=== PATIENT | female | born 1970 | race Caucasian/White ===

== ENCOUNTER 2016-12-13 13:53 | Emergency (ER) | payer BC, OTHER ==
[2016-12-13 13:59] VITALS: TEMP 97.5
[2016-12-13] MEDS ORDERED: SODIUM CHLORIDE 1,000 ML IV ONE (15:30)
[2016-12-13] MEDS ORDERED: ONDANSETRON 4 MG/2 ML VIAL IVPB ONE (15:30)
--- NOTE | 2016-12-13 15:51 | PDOC ---
History of Present Illness - General History Source: Patient Exam Limitations: No Limitations - History of Present Illness Initial Comments: 12/13/16 17:05 The patient is a 44 year old female with a past medical history of chronic neck pain, vertigo, TMJ , GERD, who presents to the emergency department with complaints of dizziness, palpitations and SOB for a week. She notes that her palpitations are worse during the night. Patient notes that she is experiencing tingling of the hands, feet and lips as well.. Patient notes that she is under a lot of stress who saw her psychiatrist on Saturday that noted that the following symptoms are related to her situation. She also reports nausea. Patient states these symptoms have all been present on and off for several months, she states she has been under alot of stress, and these symptoms seem worse at night and improved during the day. She denies any fever, chills, blurry vision, changes in vision, change in sensation, vomiting, diarrhea, melena, BPR, constipation or headache. <Terri Chambers - Last Filed: 12/13/16 17:05> <Cesar Petersen - Last Filed: 12/14/16 11:22> - General Chief Complaint: Lightheaded Stated Complaint: Lightheaded, palpitations Time Seen by Provider: 12/13/16 14:47 Past History <Terri Chambers - Last Filed: 12/13/16 17:05> - Past Medical History Anemia: No Asthma: No Cancer: No Cardiac Disorders: No CVA: No COPD: No CHF: No Dementia: No Diabetes: No GI Disorders: Yes (CHRONIC NAUSEA COLONIC POLYPS) Disorders: No HTN: No Hypercholesterolemia: No Liver Disease: No Psychiatric Problems: Yes (depression) Suicide Attempt (Hx): No Seizures: No Thyroid Disease: No - Surgical History Abdominal Surgery: No Appendectomy: No Cardiac Surgery: No Cholecystectomy: No Lung Surgery: No Neurologic Surgery: No Orthopedic Surgery: No - Psycho/Social/Smoking Cessation Hx Anxiety: No Suicidal Ideation: No Smoking History: Never smoked Have you smoked in the past 12 months: No Information on smoking cessation initiated: No Hx Alcohol Use: No Drug/Substance Use Hx: No Substance Use Type: None Hx Substance Use Treatment: No <Cesar Petersen - Last Filed: 12/14/16 11:22> - Past Medical History Allergies/Adverse Reactions: Allergies Allergy/AdvReac Type Severity Reaction Status Date / Time No Known Allergies Allergy Verified 12/13/16 13:59 Home Medications: Ambulatory Orders Citalopram Hydrobromide [Celexa -] 40 mg PO DAILY 10/13/15 Zolpidem Tartrate [Ambien] 10 mg PO HS PRN 10/17/15 Review of Systems - Review of Systems Able to Perform ROS?: Yes Comments:: 12/13/16 17:06 CONSTITUTIONAL: No reported: Fever, Chills, Diaphoresis, Generalized Weakness, Malaise, Loss of Appetite HEENT: No reported: Rhinorrhea, Nasal Congestion, Throat Pain, Throat Swelling, Difficulty Swallowing, Mouth Swelling, Ear Pain, Eye Pain, Visual Changes CARDIOVASCULAR: Reported: palpitations No reported: Chest Pain, Syncope, Irregular Heart Rate, Lightheadedness, Peripheral Edema RESPIRATORY: No reported: Cough, Shortness of Breath, SOB with Exertion, Orthopnea, Wheezing , Stridor, Hemoptysis GASTROINTESTINAL: Reported: nausea No reported: Abdominal pain, Abdominal Distension, Vomiting, Diarrhea, Constipation, Melena, Hematochezia GENITOURINARY: No reported: Dysuria, Frequency, Urgency, Hesitancy, Flank Pain, Genital Pain MUSCULOSKELETAL: No reported: Myalgia, Arthralgia, Joint Swelling, Back pain, Neck Pain SKIN: No reported: Rash, Itching, Pallor HEMEATOLOGIC/IMMUNOLOGIC: No reported: Easy Bleeding, Easy Bruising, Lymphadenopathy, Frequent infections ENDOCRINE: No reported: Unexplained Weight Gain, Unexplained Weight Loss, Heat Intolerance , Cold Intolerance NEUROLOGIC: Reported: dizziness, numbness of lip, hands and feet No reported: Headache, Focal Weakness, Paresthesias, Vertigo, Lightheadedness, Unsteady Gait, Seizure, Mental Status Changes, Incontinence PSYCHIATRIC: No reported: Anxiety, Depression <Terri Chambers - Last Filed: 12/13/16 17:05> *Physical Exam - Vital Signs Last Vital Signs Temp Pulse Resp BP Pulse Ox 97.5 F L 79 18 103/73 100 12/13/16 13:57 12/13/16 13:57 12/13/16 13:57 12/13/16 13:57 12/13/16 13:57 - Physical Exam Comments: 12/13/16 17:06 GENERAL: The patient is awake, alert, and fully oriented, Nontoxic - in no acute distress. HEAD: Normocephalic, atraumatic. EYES: extraocular movements intact, sclera anicteric, conjunctiva clear. ENT: Normal voice, Moist mucous membranes. NECK: Normal range of motion, supple LUNGS: Breath sounds equal, clear to auscultation bilaterally. No wheezes, no rhonchi, no rales. HEART: Regular rate and rhythm, without murmur, rub or gallop. ABDOMEN: Soft, nontender, normoactive bowel sounds. No guarding, no rebound.No CVA tenderness EXTREMITIES: Normal range of motion, no edema. No clubbing or cyanosis. No cords, erythema, or tenderness. NEUROLOGICAL: No facial assymetry, Normal speech, PSYCH: Normal mood, normal affect. SKIN: Warm, Dry, normal turgor <Terri Chambers - Last Filed: 12/13/16 17:05> - Vital Signs Last Vital Signs Temp Pulse Resp BP Pulse Ox 97.5 F L 79 18 103/73 100 12/13/16 13:57 12/13/16 13:57 12/13/16 13:57 12/13/16 13:57 12/13/16 13:57 <Cesar Petersen - Last Filed: 12/14/16 11:22> Heart Score/ECG Review - ECG Impressions Comment:: 12/13/16 17:21 Twelve-lead EKG was performed and reviewed by me. There is normal sinus rhythm with a normal rate. Rate of 67 The axis is normal. The intervals are normal. There is normal R wave progression There are no ST or T wave abnormalities. <Cesar Petersen - Last Filed: 12/14/16 11:22> ED Treatment Course - LABORATORY CBC & Chemistry Diagram: 12/13/16 15:30 12/13/16 15:30 - ADDITIONAL ORDERS Additional order review: Laboratory Results 12/13/16 16:04 Urine Color Straw Urine Appearance Clear Urine pH 7.0 Ur Specific [place] 1.013 Urine Protein Negative Urine Glucose (UA) Negative Urine Ketones Negative Urine Blood Negative Urine Nitrite Negative Urine Bilirubin Negative Urine Urobilinogen Negative Ur Leukocyte Esterase Negative - Medications Given in the ED: ED Medications Discontinued Medications Generic Name Dose Route Start Last Admin Trade Name Freq PRN Reason Stop Dose Admin Alprazolam 0.25 mg 12/13/16 16:22 12/13/16 16:26 Xanax - PO 12/13/16 16:23 0.25 mg ONCE ONE Administration Sodium Chloride 1,000 mls @ 1,000 mls/hr 12/13/16 15:30 12/13/16 16:18 Normal Saline - IV 12/13/16 16:29 1,000 mls/hr .Q1H ONE Administration Ondansetron HCl 4 mg 12/13/16 15:30 12/13/16 16:26 Zofran Injection IVPB 12/13/16 15:31 4 mg ONCE ONE Administration <Terri Chambers - Last Filed: 12/13/16 17:05> - LABORATORY CBC & Chemistry Diagram: 12/13/16 15:30 12/13/16 17:33 <Cesar Petersen - Last Filed: 12/14/16 11:22> Medical Decision Making - Medical Decision Making 12/13/16 17:19 46y F presenting with intermittent sob, finger tip/.perioral tingling/numbness, palpitations, nausea, worse in the eveinng, for the past several months, + stressors emotionally and at home. No associated cp, abd pain headache, back pain, neck pain. exam unremarkable suspect anxiety vitals normal here will ck labs to r/o anemia, metabolic derangement ekg to screen for arrhythmia pt given fluids, zofran and xanax for sypmtomatic relief pt wit hPMD and psych as outpatient. pt signed out to dr. hamm to fu with lab results and disposition the patient <Cesar Petersen - Last Filed: 12/14/16 11:22> *DC/Admit/Observation/Transfer - Attestations Scribe Attestion: 12/13/16 17:05 Documentation prepared by TEJAS Millard, acting as medical physiologist for Cesar Petersen MD, /DO. <Terri Chambers - Last Filed: 12/13/16 17:05> <Cesar Petersen - Last Filed: 12/14/16 11:22> Diagnosis at time of Disposition: Lightheaded - Discharge Dispostion Disposition: HOME Condition at time of disposition: Stable - Referrals Referrals: Ban Vivas [Primary Care Provider] - Yuri Gama MD [Staff Physician] - - Patient Instructions Printed Discharge Instructions: DI for Dehydration -- Adult Additional Instructions: Please make an appointment with a assembler 1st shift. You may likely need a holter monitor. Drink plenty of fluids and rest. Call to schedule an appointment with a assembler 1st shift. Call back later gerald at [phone] for the thyroid results.
[2016-12-13] MEDS ORDERED: ALPRAZolam 0.25 MG TABLET PO ONE (16:22)
[2016-12-13] MEDS ORDERED: ONDANSETRON 4 MG/2 ML VIAL ONE (16:23)
[2016-12-13] MEDS ORDERED: ALPRAZolam 0.25 MG TABLET ONE (16:24)
[2016-12-13 16:33] LABS: URINE APPEARANCE CLEAR; URINE BILIRUBIN NEGATIVE (NEGATIVE); URINE BLOOD NEGATIVE (NEGATIVE); URINE COLOR STRAW; URINE GLUCOSE (UA) NEGATIVE (NEGATIVE); URINE KETONE NEGATIVE (NEGATIVE); URINE LEUK ESTERASE NEGATIVE (NEGATIVE); URINE NITRITE NEGATIVE (NEGATIVE); URINE PROTEIN NEGATIVE (NEGATIVE); URINE UROBILINOGEN NEGATIVE E.U./dl (0.2-1.0)
[2016-12-13 16:53] LABS: BASOPHIL 1.2 % (0-2.0); EOSINOPHIL 3.2 % (0-4.5); MCH 29.2 pg (25.7-33.7); MCHC 33.5 g/dl (32.0-36.0); MEAN CELL VOLUME 87.2 fl (80-96); MEAN PLT VOLUME 10.7 fl (7.5-11.1); NEUTROPHILS 58.1 % (42.8-82.8); PLATELET COUNT 155 K/MM3 (134-434); RDW 13.1 % (11.6-15.6); WHITE BLOOD COUNT 5.6 K/mm3 (4.0-10.0)
[2016-12-13 18:34] LABS: ALBUMIN 3.9 g/dl (3.4-5.0); ANION GAP 8 (8-16); CALCIUM 8.2 mg/dL (8.5-10.1); CO2 29 mmol/L (21-32); CREATININE 0.5 mg/dL (0.55-1.02); GLUCOSE,RANDOM 75 mg/dL (74-106); MAGNESIUM 2.1 mg/dL (1.8-2.4); SGPT/ALT 22 U/L (12-78)
[2016-12-13 18:38] LABS: ALK PHOS 58 U/L (45-117); BILIRUBIN,TOTAL 0.5 mg/dL (0.2-1.0); SGOT/AST 13 U/L (15-37); TOT PROT 6.7 g/dl (6.4-8.2)
[2016-12-13 19:25] VITALS: BP 103/67; PULSE 76
--- NOTE | 2016-12-13 19:28 | PDOC ---
*Physical Exam - Vital Signs Last Vital Signs Temp Pulse Resp BP Pulse Ox 97.5 F L 76 17 103/67 99 12/13/16 13:57 12/13/16 19:24 12/13/16 19:24 12/13/16 19:24 12/13/16 19:24 ED Treatment Course - LABORATORY CBC & Chemistry Diagram: 12/13/16 15:30 12/13/16 17:33 - ADDITIONAL ORDERS Additional order review: Laboratory Results 12/13/16 12/13/16 12/13/16 17:33 16:04 15:30 Sodium 144 Cancelled Potassium 4.2 Cancelled Chloride 107 Cancelled Carbon Dioxide 29 Cancelled Anion Gap 8 Cancelled BUN 12 Cancelled Creatinine 0.5 L Cancelled Creat Clearance w eGFR > 60 Cancelled Random Glucose 75 Cancelled Calcium 8.2 L Cancelled Magnesium 2.1 Total Bilirubin 0.5 D Cancelled AST 13 L D Cancelled ALT 22 D Cancelled Alkaline Phosphatase 58 Cancelled Total Protein 6.7 Cancelled Albumin 3.9 Cancelled TSH Cancelled Serum , Qual Negative Urine Color Straw Urine Appearance Clear Urine pH 7.0 Ur Specific [place] 1.013 Urine Protein Negative Urine Glucose (UA) Negative Urine Ketones Negative Urine Blood Negative Urine Nitrite Negative Urine Bilirubin Negative Urine Urobilinogen Negative Ur Leukocyte Esterase Negative 12/13/16 15:30 RBC 4.48 MCV 87.2 MCHC 33.5 RDW 13.1 MPV 10.7 Neutrophils % 58.1 Lymphocytes % 33.2 D Monocytes % 4.3 Eosinophils % 3.2 D Basophils % 1.2 - Medications Given in the ED: ED Medications Discontinued Medications Generic Name Dose Route Start Last Admin Trade Name Jhon PRN Reason Stop Dose Admin Alprazolam 0.25 mg 12/13/16 16:22 12/13/16 16:26 Xanax - PO 12/13/16 16:23 0.25 mg ONCE ONE Administration Sodium Chloride 1,000 mls @ 1,000 mls/hr 12/13/16 15:30 12/13/16 16:18 Normal Saline - IV 12/13/16 16:29 1,000 mls/hr .Q1H ONE Administration Ondansetron HCl 4 mg 12/13/16 15:30 12/13/16 16:26 Zofran Injection IVPB 12/13/16 15:31 4 mg ONCE ONE Administration Medical Decision Making - Medical Decision Making 12/13/16 19:26 Sign-out received from outgoing Emergency Physician Dr. Petersen Pt interviewed and examined Ancillary studies reviewed Case discussed in detail with oncoming Emergency Physician including history, physical exam and ancillary studies. CBC, BMP 12/13/16 15:30 12/13/16 17:33 CMP Sodium 144 mmol/L (136-145) 12/13/16 17:33 Potassium 4.2 mmol/L (3.5-5.1) 12/13/16 17:33 Chloride 107 mmol/L (98-107) 12/13/16 17:33 Carbon Dioxide 29 mmol/L (21-32) 12/13/16 17:33 Anion Gap 8 (8-16) 12/13/16 17:33 BUN 12 mg/dL (7-18) 12/13/16 17:33 Creatinine 0.5 mg/dL (0.55-1.02) L 12/13/16 17:33 Creat Clearance w eGFR > 60 (>60) 12/13/16 17:33 Random Glucose 75 mg/dL (74-106) 12/13/16 17:33 Calcium 8.2 mg/dL (8.5-10.1) L 12/13/16 17:33 Magnesium 2.1 mg/dL (1.8-2.4) 12/13/16 17:33 Total Bilirubin 0.5 mg/dL (0.2-1.0) D 12/13/16 17:33 AST 13 U/L (15-37) L D 12/13/16 17:33 ALT 22 U/L (12-78) D 12/13/16 17:33 Alkaline Phosphatase 58 U/L (45-117) 12/13/16 17:33 Total Protein 6.7 g/dl (6.4-8.2) 12/13/16 17:33 Albumin 3.9 g/dl (3.4-5.0) 12/13/16 17:33 TSH Cancelled 12/13/16 15:30 Serum , Qual Negative 12/13/16 16:04 TSH pending. After discussing the patient, and the patient's family, the patient appears to be under a significant amount of stress at home and work. It is possible that this is all stress related. however, given the length of the symptoms, I will refer the patient to cardiology for possible tilt test and holter monitor. The patient is requesting to go home, prior to the TSH results. I have the patient promise to call me back for the results of the TSH. She is ambulatory without difficulty. I discussed the physical exam findings, ancillary test results and final diagnoses with the patient. I answered all of the patient's questions. The patient was satisfied with the care received and felt comfortable with the discharge plan and treatment plan. The patient will call their primary care physician within 24 hours to arrange follow-up and will return to the Emergency Department with any new, persistant or worsening symptoms. *DC/Admit/Observation/Transfer Diagnosis at time of Disposition: Lightheaded - Discharge Dispostion Disposition: HOME Condition at time of disposition: Stable Admit: No - Referrals Referrals: Ban Vivas [Primary Care Provider] - Yuri Gama MD [Staff Physician] - - Patient Instructions Printed Discharge Instructions: DI for Dehydration -- Adult Additional Instructions: Please make an appointment with a ip litigation paralegal. You may likely need a holter monitor. Drink plenty of fluids and rest. Call to schedule an appointment with a ip litigation paralegal. Call back later tonight at [phone] for the thyroid results. - Post Discharge Activity
--- NOTE | 2016-12-14 11:49 | EKG ---
Test Reason : Blood Pressure : / mmHG Vent. Rate : 067 BPM Atrial Rate : 067 BPM P-R Int : 162 ms QRS Dur : 088 ms QT Int : 440 ms P-R-T Axes : 076 079 048 degrees QTc Int : 464 ms NORMAL SINUS RHYTHM POSSIBLE LEFT ATRIAL ENLARGEMENT INCOMPLETE RBBB WHEN COMPARED WITH ECG OF 11-APR-2014 12:03, NO SIGNIFICANT CHANGE WAS FOUND Confirmed by CHUY VENTURA MD ([id number]) on 12/14/2016 11:48:59 AM Referred By: Confirmed By:CHUY VENTURA MD
== END 2016-12-13 19:53 | disposition home or self-care (01) ==
LOC: JER 13:53
PROC: 3E0337Z Introduction of Electrolytic and Water Balance Substance into Peripheral Vein, Percutaneous Approach (ICD-10-PCS; principal; 2016-12-13)
DX: R42 Dizziness and giddiness (principal); F32.9 Major depressive disorder, single episode, unspecified
CPT/HCPCS: 36415; 80053; 81003; 83735; 84443; 84703; 85025; 93005; 93010; 99282-25

== ENCOUNTER 2018-07-06 01:02 | Observation (INO) | payer OTHER ==
[2018-07-06] MEDS ORDERED: NALOXONE HCL 0.4 MG/ML VIAL IVPUSH ONE (01:28)
[2018-07-06] MEDS ORDERED: NALOXONE HCL 0.4 MG/ML VIAL ONE (01:30)
--- NOTE | 2018-07-06 01:34 | PDOC ---
History of Present Illness - General Chief Complaint: Overdose Stated Complaint: OVERDOSE Time Seen by Provider: 07/06/18 01:25 - History of Present Illness Initial Comments: 07/06/18 01:29 44 year old female with a past medical history of chronic neck pain, vertigo, TMJ , GERD, who presents to the emergency department with overdose on Ambien, Vallium, possible Robaxin, Celexa with alcohol use earlier in the evening. The patient was found by her in the home lethargic, unresponsive, and with difficulty breathing. She told her that she was trying to commit suicide and she wants to . She has tried to commit suicide before previously with slitting her wrists. Past History - Past Medical History Allergies/Adverse Reactions: Allergies Allergy/AdvReac Type Severity Reaction Status Date / Time No Known Allergies Allergy Verified 07/06/18 01:21 Home Medications: Ambulatory Orders Diazepam [Valium] 2 mg PO DAILY 07/18/17 Alprazolam [Xanax] 0.25 mg PO DAILY PRN #7 tablet MDD 1 03/25/18 Zolpidem Tartrate [Ambien] 5 mg PO HS 03/25/18 Anemia: No Asthma: No Cancer: No Cardiac Disorders: No CVA: No COPD: No CHF: No Dementia: No Diabetes: No GI Disorders: Yes (CHRONIC NAUSEA COLONIC POLYPS) Disorders: No HTN: No Hypercholesterolemia: No Liver Disease: No Psychiatric Problems: Yes (depression) Seizures: No Thyroid Disease: No - Surgical History Abdominal Surgery: No Appendectomy: No Cardiac Surgery: No Cholecystectomy: No Lung Surgery: No Neurologic Surgery: No Orthopedic Surgery: No - Suicide/Smoking/Psychosocial Hx Smoking History: Unknown if ever smoked Have you smoked in the past 12 months: No Information on smoking cessation initiated: No Hx Alcohol Use: No Drug/Substance Use Hx: No Substance Use Type: None Hx Substance Use Treatment: No *Physical Exam - Vital Signs Last Vital Signs Temp Pulse Resp BP Pulse Ox 97.6 F 64 12 96/66 98 07/06/18 01:05 07/06/18 01:05 07/06/18 01:05 07/06/18 01:05 07/06/18 01:05 - Physical Exam Comments: 07/06/18 02:55 AOx3, but lethargic requiring 8L on nonrebreather CTAB, RRR no abdominal tenderness ED Treatment Course - LABORATORY CBC & Chemistry Diagram: 07/06/18 01:23 07/06/18 01:23 - RADIOLOGY Radiology Studies Ordered: Category Date Time Status ABDOMEN FLAT-LATERAL [RAD] Stat Radiology 07/06/18 01:15 Ordered CHEST X-RAY PORTABLE* [RAD] Stat Radiology 07/06/18 01:15 Ordered Medical Decision Making - Medical Decision Making 07/06/18 01:41 44 year old female with a past medical history of chronic neck pain, vertigo, TMJ , GERD, who presents to the emergency department with overdose on Ambien, Vallium, possible Robaxin, Celexa with alcohol use earlier in the evening. The patient was found by her in the home lethargic, unresponsive, and with difficulty breathing. She told her that she was trying to commit suicide and she wants to . ED Course: Patient able to verbally communicate, but lethargic. Narcan administered. Fluid resuscitation given. Pt endorses feeling unwell, because she is still alive. 07/06/18 02:56 Patient reassessed. stable. satting 97% on RA. [facility]. Waiting call back. 07/06/18 03:55 U tox: + benzos 07/06/18 03:56 Patient admitted to medicine. *DC/Admit/Observation/Transfer Diagnosis at time of Disposition: Overdose - Discharge Dispostion Condition at time of disposition: Stable Decision to Admit order: Yes - Referrals - Patient Instructions - Post Discharge Activity
--- NOTE | 2018-07-06 01:36 | PDOC ---
Attending Attestation - Resident Resident Name: Jocelyn Cuevas - ED Attending Attestation I have performed the following: I have examined & evaluated the patient, The case was reviewed & discussed with the resident, I agree w/resident's findings & plan - HPI HPI: 07/06/18 01:37 Pt had argument with her of 4 yrs, and she took valiums and narcotics that were at home and she wanted to end her life. Pt states that she cannot take it any more, and she wants it to end. - Physicial Exam PE: 07/06/18 01:38 Agree with resident. Pt is sleepy but arousable. She is able to give a hx and follow commands. She tells me that her son from a prior relationship is 27, that she is for 4 yrs. That she argues with all the time; that she cut her right wrist 6 yrs ago, and that she has throught about ending her life in the past. Pupils are not blown. HR is 61; RR is 9-15. Pt has BP of 106 systolic. Pt is afebrile. She is postmenopausal and she will have portable CXR and Abd XR. EKG is NSR. - Medical Decision Making 07/06/18 01:42 [place] poison control center called; I spoke to Alex, who tells me that Narcan should be given for potential narcotic ingestion. Pt should not be dangerously lethargic from valium; fomepizole is not recommended, as she may have a seizure. Pt ought to be hydrated. Tox studies will be sent. 07/06/18 01:57 Pt will be admitted for overdose and for psych evaluation in the AM 07/06/18 03:17 Pt has benzos in the urine 07/06/18 03:56 Salicylates and tylenol negative. ETOH 71; only benzos in the urine (valium) states that pt may have ingested his bottle full of 500mg robaxin, celexa, ambiens, 's # is [phone] 07/06/18 03:58 I tried admitting the patient to the ICU, as she is somnolent, though he vitals are stable. ICU rejected the paitent. Pt now will be admitted to telemetry admission. Hospitalist aware. Heart Score/ECG Review - Age Age: 45-65 - ECG Intrepretation Rhythm: Regular Rhythm - [place]: Normal - P and MT Delta Wave(s) Present: No WPW: No - QRS Poor R Wave Progression: No Q Wave Present: No - ST and T Early Repolarization: No Non Specific ST-T Wave changes: No Flattened T Waves: No Prolonged Q-T Interval: No - ECG Impressions Normal ECG: Yes Non-specific ST Elevation: No Ischemic Changes: No
[2018-07-06 01:37] LABS: BASO % 0.3 % (0-2.0); EOS % 6.1 % (0-4.5); HEMATOCRIT 37.6 % (32.4-45.2); HEMOGLOBIN 12.7 GM/dL (10.7-15.3); LYMPH % 47.8 % (8-40); MCH 29.5 pg (25.7-33.7); MCHC 33.8 g/dl (32.0-36.0); MEAN CELL VOLUME 87.5 fl (80-96); MEAN PLT VOLUME 10.3 fl (7.5-11.1); MONO % 4.9 % (3.8-10.2); NEUT % 40.9 % (42.8-82.8); PLATELET COUNT 150 K/MM3 (134-434); RDW 12.5 % (11.6-15.6); WHITE BLOOD COUNT 5.4 K/mm3 (4.0-10.0)
[2018-07-06] MEDS ORDERED: SODIUM CHLORIDE 1,000 ML IV SCH ×2 (01:45→07:00)
[2018-07-06 01:52] LABS: INR 1.07 (0.83-1.09); PROTHROMBIN TIME (PATIENT) 12.6 SEC (9.7-13.0)
[2018-07-06] MEDS ORDERED: SODIUM CHLORIDE 1,000 ML IV ONE (01:59)
[2018-07-06 02:02] LABS: ALBUMIN 3.8 g/dl (3.4-5.0); ALK PHOS 70 U/L (45-117); ANION GAP 7 MMOL/L (8-16); BILIRUBIN,TOTAL 0.3 mg/dL (0.2-1); BLOOD UREA NITROGEN 14 mg/dL (7-18); CALCIUM 8.7 mg/dL (8.5-10.1); CHLORIDE 106 mmol/L (98-107); CO2 31 mmol/L (21-32); CREATININE 0.8 mg/dL (0.55-1.3); GLUCOSE,RANDOM 79 mg/dL (74-106); POTASSIUM 3.7 mmol/L (3.5-5.1); SGOT/AST 25 U/L (15-37); SGPT/ALT 25 U/L (13-61); SODIUM 143 mmol/L (136-145)
[2018-07-06 02:52] LABS: URINE APPEARANCE CLEAR; URINE BILIRUBIN NEGATIVE (<2.0 mg/dL); URINE COLOR LTYELLOW; URINE GLUCOSE (UA) NEGATIVE (NEGATIVE); URINE KETONE NEGATIVE (NEGATIVE); URINE LEUK ESTERASE 2+ (NEGATIVE); URINE NITRITE NEGATIVE (NEGATIVE); URINE PROTEIN NEGATIVE (NEGATIVE); URINE UROBILINOGEN NEGATIVE mg/dL (0.2-1.0)
[2018-07-06 02:58] LABS: EPI CELLS RARE /HPF (FEW); URINE BACTERIA RARE /hpf (NONE SEEN); URINE HYALINE CAST 3 /lpf; URINE MUCUS RARE
[2018-07-06 03:15] LABS: COCAINE, UR NEGATIVE ng/ml (CUTOFF=300); METHADONE, UR NEGATIVE ng/ml (CUTOFF=300); OPIATES, URI NEGATIVE ng/ml (CUTOFF=300); PHENCYCLIDINE,URINE NEGATIVE ng/ml (CUTOFF=25); URINE AMPHETAMINES NEGATIVE ng/ml (CUTOFF=500); URINE BARBITURATES NEGATIVE ng/ml (CUTOFF=200)
[2018-07-06 03:16] LABS: URINE BENZODIAZEPINES POSITIVE ng/ml (CUTOFF=200)
--- NOTE | 2018-07-06 04:26 | HP ---
CHIEF COMPLAINT: Drug overdose PCP: HISTORY OF PRESENT ILLNESS: Patient is a 47 year old female with history significant for anxiety, presents after taking overdose of Valium. She does not recall what else she took, however per ED patient took Ambien, Robaxin, and Celexa as well. She admits that she takes Celexa 40mg once a day, and denies overdosing on that today. She had gotten into argument with her earlier and as he threatened to divorce her, she took the medications in suicide attempt. She has history of suicide attempt 10 years ago as she tried to overdose on Xanax. 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 Denies fevers, chills, shortness of breath, cough, chest pain, palpitations, abdominal pain, nausea, vomiting. Denies tactile, or auditory hallucinations. She denies current suicidal or homicidal ideation upon my encounter. ER course was notable for: (1) Narcan PAST MEDICAL HISTORY: TMJ syndrome, vertigo, GERD, anxiety PAST SURGICAL HISTORY: denies Social History: Smoking: denies Alcohol: admits drinking 1-2 alcoholic drinks, socially Drugs: denies Family History: Allergies No Known Allergies Allergy (Verified 07/06/18 01:21) HOME MEDICATIONS: Home Medications Medication Instructions Recorded Diazepam [Valium] 2 mg PO DAILY 07/18/17 Alprazolam [Xanax] 0.25 mg PO DAILY PRN #7 tablet MDD 03/25/18 1 Zolpidem Tartrate [Ambien] 5 mg PO HS 03/25/18 REVIEW OF SYSTEMS CONSTITUTIONAL: Admits: sleepyness, generalized weakness. Absent: fever, chills, diaphoresis, malaise, weight change HEENT: Absent: rhinorrhea, nasal congestion, throat pain, throat swelling, difficulty swallowing, mouth swelling, ear pain, eye pain, visual changes CARDIOVASCULAR: Absent: chest pain, palpitations, irregular heart rate, lightheadedness, peripheral edema RESPIRATORY: Absent: cough, shortness of breath, dyspnea with exertion, orthopnea, wheezing, stridor, hemoptysis GASTROINTESTINAL: Absent: abdominal pain, abdominal distension, nausea, vomiting, diarrhea, constipation, melena, hematochezia GENITOURINARY: Absent: dysuria, frequency, urgency, hesitancy, hematuria, flank pain, genital pain MUSCULOSKELETAL: Absent: myalgia, arthralgia, joint swelling, back pain, neck pain NEUROLOGIC: Absent: headache, focal weakness or paresthesias, dizziness, unsteady gait, bladder or bowel incontinence PSYCHIATRIC: Admits: anxiety, depression. States she no longer has suicidal ideation. Denies homicidal ideation. PHYSICAL EXAMINATION Vital Signs - 24 hr 07/06/18 01:05 Temperature 97.6 F Pulse Rate 64 Respiratory 12 Rate Blood Pressure 96/66 O2 Sat by Pulse 98 Oximetry (%) GENERAL: Sleepy, oriented to person, place, and time in no acute distress. HEAD: Normal with no signs of trauma. EYES: Pupils 3mm, equal, round and reactive to light, extraocular movements intact without nystagmus. Sclera anicteric, conjunctiva clear b/l. EARS, NOSE, THROAT: Oropharynx clear without exudates. Dry mucous membranes. NECK: Supple without lymphadenopathy or JVD. LUNGS: Breath sounds equal, clear to auscultation bilaterally. No wheezes, and no crackles. No accessory muscle use. HEART: Regular rate and rhythm, normal S1 and S2 without murmur, rub or gallop. ABDOMEN: Soft, nontender, not distended, hypoactive bowel sounds. No guarding, no rebound. No hepatomegaly. MUSCULOSKELETAL: Normal range of motion at all joints. UPPER EXTREMITIES: 2+ radial pulses b/l, warm, well-perfused. No cyanosis. Strength 4/5 b/l upper extremities. LOWER EXTREMITIES: 2+ pulses dorsalis pedis, warm, well-perfused. No calf tenderness. No peripheral edema. Strength 4/5 b/l lower extremities. NEUROLOGICAL: Cranial nerves II-XII intact. Normal speech. Normal gait. PSYCHIATRIC: Cooperative. SKIN: Warm, dry, normal turgor. Laboratory Results - last 24 hr 07/06/18 07/06/18 07/06/18 00:21 01:23 01:23 WBC 5.4 RBC 4.30 Hgb 12.7 Hct 37.6 MCV 87.5 MCH 29.5 MCHC 33.8 RDW 12.5 Plt Count 150 MPV 10.3 Absolute Neuts (auto) 2.2 Neutrophils % 40.9 L D Lymphocytes % 47.8 H D Monocytes % 4.9 Eosinophils % 6.1 H D Basophils % 0.3 Nucleated RBC % 0 PT with INR 12.60 INR 1.07 PTT (Actin FS) 33.0 Sodium Potassium Chloride Carbon Dioxide Anion Gap BUN Creatinine Creat Clearance w eGFR Random Glucose Lactic Acid 0.8 Calcium Total Bilirubin AST ALT Alkaline Phosphatase Creatine Kinase Troponin I Total Protein Albumin Urine Color Urine Appearance Urine pH Ur Specific [place] Urine Protein Urine Glucose (UA) Urine Ketones Urine Blood Urine Nitrite Urine Bilirubin Urine Urobilinogen Ur Leukocyte Esterase Urine WBC (Auto) Urine RBC (Auto) Ur Epithelial Cells Urine Bacteria Hyaline Casts Urine Mucus Salicylates Opiates Screen Methadone Screen Acetaminophen Barbiturate Screen Phencyclidine Screen Ur Amphetamines Screen MDMA (Ecstasy) Screen Benzodiazepines Screen Cocaine Screen U Marijuana (THC) Screen Alcohol, Quantitative 07/06/18 07/06/18 07/06/18 01:23 01:23 01:23 WBC RBC Hgb Hct MCV MCH MCHC RDW Plt Count MPV Absolute Neuts (auto) Neutrophils % Lymphocytes % Monocytes % Eosinophils % Basophils % Nucleated RBC % PT with INR INR PTT (Actin FS) Sodium Cancelled 143 Potassium Cancelled 3.7 Chloride Cancelled 106 Carbon Dioxide Cancelled 31 Anion Gap Cancelled 7 L BUN Cancelled 14 Creatinine Cancelled 0.8 Creat Clearance w eGFR Cancelled > 60 Random Glucose Cancelled 79 Lactic Acid Calcium Cancelled 8.7 Total Bilirubin Cancelled 0.3 AST Cancelled 25 ALT Cancelled 25 Alkaline Phosphatase Cancelled 70 Creatine Kinase 76 Troponin I < 0.02 Total Protein Cancelled 7.0 Albumin Cancelled 3.8 Urine Color Urine Appearance Urine pH Ur Specific [place] Urine Protein Urine Glucose (UA) Urine Ketones Urine Blood Urine Nitrite Urine Bilirubin Urine Urobilinogen Ur Leukocyte Esterase Urine WBC (Auto) Urine RBC (Auto) Ur Epithelial Cells Urine Bacteria Hyaline Casts Urine Mucus Salicylates < 1.7 L Opiates Screen Methadone Screen Acetaminophen < 2.0 L Barbiturate Screen Phencyclidine Screen Ur Amphetamines Screen MDMA (Ecstasy) Screen Benzodiazepines Screen Cocaine Screen U Marijuana (THC) Screen Alcohol, Quantitative 71.7 H 07/06/18 07/06/18 02:35 02:35 WBC RBC Hgb Hct MCV MCH MCHC RDW Plt Count MPV Absolute Neuts (auto) Neutrophils % Lymphocytes % Monocytes % Eosinophils % Basophils % Nucleated RBC % PT with INR INR PTT (Actin FS) Sodium Potassium Chloride Carbon Dioxide Anion Gap BUN Creatinine Creat Clearance w eGFR Random Glucose Lactic Acid Calcium Total Bilirubin AST ALT Alkaline Phosphatase Creatine Kinase Troponin I Total Protein Albumin Urine Color Ltyellow Urine Appearance Clear Urine pH 5.0 D Ur Specific [place] 1.014 Urine Protein Negative Urine Glucose (UA) Negative Urine Ketones Negative Urine Blood 1+ H Urine Nitrite Negative Urine Bilirubin Negative Urine Urobilinogen Negative Ur Leukocyte Esterase 2+ H Urine WBC (Auto) 18 Urine RBC (Auto) 1 Ur Epithelial Cells Rare Urine Bacteria Rare Hyaline Casts 3 Urine Mucus Rare Salicylates Opiates Screen Negative Methadone Screen Negative Acetaminophen Barbiturate Screen Negative Phencyclidine Screen Negative Ur Amphetamines Screen Negative MDMA (Ecstasy) Screen Negative Benzodiazepines Screen Positive A* Cocaine Screen Negative U Marijuana (THC) Screen Negative Alcohol, Quantitative ASSESSMENT/PLAN: Patient is a 47 year old female with history significant for anxiety, presents after taking unknown quantity of Valium, Ambien, Robaxin, and Celexa Benzodiazepine overdose - Patient is lethargic. Received 0.4mg IV narcan in ED -Urine toxicology shows benzodiazepines, and ethanol. -EKG shows normal sinus rhythm at 65 bpm. Incomplete RBBB unchanged from prior ECG 11/2016. -Will follow up serial EKG -Discussed with Poison Control who advise monitoring of QTc. -Troponin negative at 0.02 -F/U psychiatrist consult (Dr. Jim) -One-to-one observation -Fall precautions Anxiety, depression -Patient states she takes Celexa 40mg daily -Will need to reconcile medications. -Currently holding her psychiatric medications. -F/U psychiatrist recommendations (Dr. Jim) FEN -IV normal saline at 100mL/ hour -Follow CMP -NPO Prophylaxis -Heparin 5000u subq TID Disposition -Observe in telemetry floor. Visit type - Emergency Visit Emergency Visit: Yes ED Registration Date: 07/06/18 Care time: The patient presented to the Emergency Department on the above date and was hospitalized for further evaluation of their emergent condition. - New Patient This patient is new to me today: Yes Date on this admission: 07/06/18 - Critical Care Critical Care patient: No
--- NOTE | 2018-07-06 06:29 | PN ---
Teaching Attending Note Name of Resident: Bebeto Whitaker ATTENDING PHYSICIAN STATEMENT I saw and evaluated the patient. Chart, data, imaging reviewed. I reviewed the resident's note and discussed the case with the resident. I agree with the resident's findings and plan as documented. SUBJECTIVE: 47 year old female with history significant for anxiety, depression brought to hospital after OD on uncertain quantity of valium, ambien, robaxin, 1 tab of celexa after she engaged in an argument with her . History of suicide attempt 10 yrs ago. Poison control was contacted from ER and recommended nalaxone nad to monitor qtc interval. OBJECTIVE: Last Vital Signs Temp Pulse Resp BP Pulse Ox 97.6 F 64 12 96/66 98 07/06/18 01:05 07/06/18 01:05 07/06/18 01:05 07/06/18 01:05 07/06/18 01:05 General- aa0x3, nontoxic, lethargic, on 1 to 1 heent- atraumatic, perrla, moist oral mucosa neck -supple, no jvd chest- clear abdomen- soft, nt, bs+ ext- no clubbing or pedal edema Abnormal Lab Results 07/06/18 07/06/18 07/06/18 01:23 01:23 01:23 Neutrophils % 40.9 L D Lymphocytes % 47.8 H D Eosinophils % 6.1 H D Anion Gap 7 L Urine Blood Ur Leukocyte Esterase Salicylates < 1.7 L Acetaminophen < 2.0 L Benzodiazepines Screen Alcohol, Quantitative 71.7 H 07/06/18 07/06/18 02:35 02:35 Neutrophils % Lymphocytes % Eosinophils % Anion Gap Urine Blood 1+ H Ur Leukocyte Esterase 2+ H Salicylates Acetaminophen Benzodiazepines Screen Positive A* Alcohol, Quantitative ekg - reviewed- nsr, no qtc prolongation ASSESSMENT AND PLAN: 47yo woman with depression, anxiety s/p unsuccessful suicide attempt with medications mentioned above. Currently she is hemodynamically stable and blood cbc, chemistry including LFTs appear wnl. -tele/observation -NPO -serial ekg's to monitor qtc -cxr to r/o aspiration -monitor electrolytes and supplement prn -IV fluid hydration -f/u with poison control -hold psych meds -1 to 1 for suicidal ideation -psych evaluation -heparin sc for dvt ppx
[2018-07-06] MEDS ORDERED: HEPARIN NA (PORCINE) 5,000 UNITS/ML 1ML VIAL ONE (07:08)
[2018-07-06] MEDS: HEPARIN NA (PORCINE) 5,000 UNITS/ML 1ML VIAL SQ SCH ×2 (07:14→13:42)
[2018-07-06 09:27] LABS: HEMATOCRIT 34.8 % (32.4-45.2); HEMOGLOBIN 11.6 GM/dL (10.7-15.3); MCH 29.1 pg (25.7-33.7); MCHC 33.2 g/dl (32.0-36.0); MEAN CELL VOLUME 87.4 fl (80-96); MEAN PLT VOLUME 10.4 fl (7.5-11.1); PLATELET COUNT 132 K/MM3 (134-434); RBC 3.99 M/mm3 (3.60-5.2); RDW 12.4 % (11.6-15.6); WHITE BLOOD COUNT 4.3 K/mm3 (4.0-10.0)
[2018-07-06 09:53] LABS: ALBUMIN 3.3 g/dl (3.4-5.0); ALK PHOS 59 U/L (45-117); ANION GAP 4 MMOL/L (8-16); BILIRUBIN,TOTAL 0.4 mg/dL (0.2-1); BLOOD UREA NITROGEN 14 mg/dL (7-18); CALCIUM 7.8 mg/dL (8.5-10.1); CHLORIDE 110 mmol/L (98-107); CO2 28 mmol/L (21-32); CREATININE 0.6 mg/dL (0.55-1.3); GLUCOSE,RANDOM 75 mg/dL (74-106); MAGNESIUM 2.1 mg/dL (1.8-2.4); PHOSPHOROUS 3.8 mg/dL (2.5-4.9); SGOT/AST 18 U/L (15-37); SGPT/ALT 22 U/L (13-61); SODIUM 142 mmol/L (136-145)
[2018-07-06 11:01] VITALS: BMI 20.2
--- NOTE | 2018-07-06 11:07 | EKG ---
Test Reason : Blood Pressure : / mmHG Vent. Rate : 065 BPM Atrial Rate : 065 BPM P-R Int : 144 ms QRS Dur : 092 ms QT Int : 438 ms P-R-T Axes : 084 071 036 degrees QTc Int : 455 ms NORMAL SINUS RHYTHM POSSIBLE LEFT ATRIAL ENLARGEMENT INCOMPLETE RIGHT BUNDLE BRANCH BLOCK BORDERLINE ECG WHEN COMPARED WITH ECG OF 25-MAR-2018 21:58, NO SIGNIFICANT CHANGE WAS FOUND Confirmed by HALIMA LABOY, JEFFERY ([id number]) on 07/06/2018 11:06:30 AM Referred By: Confirmed By:JEFFERY VARGHESE MD
--- NOTE | 2018-07-06 13:19 | EKG ---
Test Reason : Blood Pressure : / mmHG Vent. Rate : 055 BPM Atrial Rate : 055 BPM P-R Int : 156 ms QRS Dur : 084 ms QT Int : 448 ms P-R-T Axes : 076 075 034 degrees QTc Int : 428 ms SINUS BRADYCARDIA POSSIBLE LEFT ATRIAL ENLARGEMENT BORDERLINE ECG WHEN COMPARED WITH ECG OF 06-JUL-2018 01:35, NO SIGNIFICANT CHANGE WAS FOUND Confirmed by JEFFERY VARGHESE MD ([id number]) on 07/06/2018 1:19:05 PM Referred By: Дмитрий SERRATO Confirmed By:JEFFERY VARGHESE MD
--- NOTE | 2018-07-06 14:02 | PN ---
Physical Exam: SUBJECTIVE: Patient seen and examined, denies any SI currently. Currently denies events prior to admission as suicidal attempt, reports had not slept in 3 days so took 'some extra doses of valium/ambien'. Denies overdosing on any other medications, no other complaints. OBJECTIVE: Vital Signs Period Temp Pulse Resp BP Sys/Ellison Pulse Ox Last 24 Hr 97.6 F-98.5 F 60-84 12-20 90-98/56-66 97-98 GENERAL: The patient is awake, alert, and fully oriented, in no acute distress. HEAD: Normal with no signs of trauma. EYES: PERRL, extraocular movements intact, sclera anicteric, conjunctiva clear. No ptosis. ENT: Ears normal, nares patent, oropharynx clear without exudates, moist mucous membranes. NECK: Trachea midline, full range of motion, supple. LUNGS: Breath sounds equal, clear to auscultation bilaterally, no wheezes, no crackles, no accessory muscle use. HEART: S1S2 regular rate rhythm ABDOMEN: Soft, nontender, nondistended, normoactive bowel sounds, no guarding, no rebound, no hepatosplenomegaly, no masses. EXTREMITIES: 2+ pulses, warm, well-perfused, no edema. NEUROLOGICAL: Cranial nerves II through XII grossly intact. Normal speech, gait not observed. AAOX3, power 5/5, sensation intact to light touch, facial symmetry, tongue midline, EOMI, PERRL, no pronator drift PSYCH: Normal mood, normal affect. SKIN: Warm, dry, normal turgor, no rashes or lesions noted Laboratory Results - last 24 hr 07/06/18 07/06/18 07/06/18 00:21 01:23 01:23 WBC 5.4 RBC 4.30 Hgb 12.7 Hct 37.6 MCV 87.5 MCH 29.5 MCHC 33.8 RDW 12.5 Plt Count 150 MPV 10.3 Absolute Neuts (auto) 2.2 Neutrophils % 40.9 L D Lymphocytes % 47.8 H D Monocytes % 4.9 Eosinophils % 6.1 H D Basophils % 0.3 Nucleated RBC % 0 PT with INR 12.60 INR 1.07 PTT (Actin FS) 33.0 Sodium Potassium Chloride Carbon Dioxide Anion Gap BUN Creatinine Creat Clearance w eGFR Random Glucose Lactic Acid 0.8 Calcium Phosphorus Magnesium Total Bilirubin AST ALT Alkaline Phosphatase Creatine Kinase Troponin I Total Protein Albumin Urine Color Urine Appearance Urine pH Ur Specific [place] Urine Protein Urine Glucose (UA) Urine Ketones Urine Blood Urine Nitrite Urine Bilirubin Urine Urobilinogen Ur Leukocyte Esterase Urine WBC (Auto) Urine RBC (Auto) Ur Epithelial Cells Urine Bacteria Hyaline Casts Urine Mucus Salicylates Opiates Screen Methadone Screen Acetaminophen Barbiturate Screen Phencyclidine Screen Ur Amphetamines Screen MDMA (Ecstasy) Screen Benzodiazepines Screen Cocaine Screen U Marijuana (THC) Screen Alcohol, Quantitative 07/06/18 07/06/18 07/06/18 01:23 01:23 01:23 WBC RBC Hgb Hct MCV MCH MCHC RDW Plt Count MPV Absolute Neuts (auto) Neutrophils % Lymphocytes % Monocytes % Eosinophils % Basophils % Nucleated RBC % PT with INR INR PTT (Actin FS) Sodium Cancelled 143 Potassium Cancelled 3.7 Chloride Cancelled 106 Carbon Dioxide Cancelled 31 Anion Gap Cancelled 7 L BUN Cancelled 14 Creatinine Cancelled 0.8 Creat Clearance w eGFR Cancelled > 60 Random Glucose Cancelled 79 Lactic Acid Calcium Cancelled 8.7 Phosphorus Magnesium Total Bilirubin Cancelled 0.3 AST Cancelled 25 ALT Cancelled 25 Alkaline Phosphatase Cancelled 70 Creatine Kinase 76 Troponin I < 0.02 Total Protein Cancelled 7.0 Albumin Cancelled 3.8 Urine Color Urine Appearance Urine pH Ur Specific [place] Urine Protein Urine Glucose (UA) Urine Ketones Urine Blood Urine Nitrite Urine Bilirubin Urine Urobilinogen Ur Leukocyte Esterase Urine WBC (Auto) Urine RBC (Auto) Ur Epithelial Cells Urine Bacteria Hyaline Casts Urine Mucus Salicylates < 1.7 L Opiates Screen Methadone Screen Acetaminophen < 2.0 L Barbiturate Screen Phencyclidine Screen Ur Amphetamines Screen MDMA (Ecstasy) Screen Benzodiazepines Screen Cocaine Screen U Marijuana (THC) Screen Alcohol, Quantitative 71.7 H 07/06/18 07/06/18 07/06/18 02:35 02:35 09:05 WBC 4.3 RBC 3.99 Hgb 11.6 Hct 34.8 MCV 87.4 MCH 29.1 MCHC 33.2 RDW 12.4 Plt Count 132 L MPV 10.4 Absolute Neuts (auto) Neutrophils % Lymphocytes % Monocytes % Eosinophils % Basophils % Nucleated RBC % PT with INR INR PTT (Actin FS) Sodium Potassium Chloride Carbon Dioxide Anion Gap BUN Creatinine Creat Clearance w eGFR Random Glucose Lactic Acid Calcium Phosphorus Magnesium Total Bilirubin AST ALT Alkaline Phosphatase Creatine Kinase Troponin I Total Protein Albumin Urine Color Ltyellow Urine Appearance Clear Urine pH 5.0 D Ur Specific [place] 1.014 Urine Protein Negative Urine Glucose (UA) Negative Urine Ketones Negative Urine Blood 1+ H Urine Nitrite Negative Urine Bilirubin Negative Urine Urobilinogen Negative Ur Leukocyte Esterase 2+ H Urine WBC (Auto) 18 Urine RBC (Auto) 1 Ur Epithelial Cells Rare Urine Bacteria Rare Hyaline Casts 3 Urine Mucus Rare Salicylates Opiates Screen Negative Methadone Screen Negative Acetaminophen Barbiturate Screen Negative Phencyclidine Screen Negative Ur Amphetamines Screen Negative MDMA (Ecstasy) Screen Negative Benzodiazepines Screen Positive A* Cocaine Screen Negative U Marijuana (THC) Screen Negative Alcohol, Quantitative 07/06/18 09:05 WBC RBC Hgb Hct MCV MCH MCHC RDW Plt Count MPV Absolute Neuts (auto) Neutrophils % Lymphocytes % Monocytes % Eosinophils % Basophils % Nucleated RBC % PT with INR INR PTT (Actin FS) Sodium 142 Potassium 4.0 Chloride 110 H Carbon Dioxide 28 Anion Gap 4 L BUN 14 Creatinine 0.6 Creat Clearance w eGFR > 60 Random Glucose 75 Lactic Acid Calcium 7.8 L Phosphorus 3.8 Magnesium 2.1 Total Bilirubin 0.4 AST 18 ALT 22 Alkaline Phosphatase 59 Creatine Kinase Troponin I Total Protein 6.0 L Albumin 3.3 L Urine Color Urine Appearance Urine pH Ur Specific [place] Urine Protein Urine Glucose (UA) Urine Ketones Urine Blood Urine Nitrite Urine Bilirubin Urine Urobilinogen Ur Leukocyte Esterase Urine WBC (Auto) Urine RBC (Auto) Ur Epithelial Cells Urine Bacteria Hyaline Casts Urine Mucus Salicylates Opiates Screen Methadone Screen Acetaminophen Barbiturate Screen Phencyclidine Screen Ur Amphetamines Screen MDMA (Ecstasy) Screen Benzodiazepines Screen Cocaine Screen U Marijuana (THC) Screen Alcohol, Quantitative Active Medications Generic Name Dose Route Start Last Admin Trade Name Freq PRN Reason Stop Dose Admin Heparin Sodium (Porcine) 5,000 unit 07/06/18 07:00 07/06/18 13:42 Heparin - SQ 5,000 unit TID [facility] Administration Sodium Chloride 1,000 mls @ 100 mls/hr 07/06/18 07:00 07/06/18 07:14 Normal Saline - IV 100 mls/hr ASDIR [facility] Administration ASSESSMENT/PLAN: 47 yof with PMHx of chronic neck pain, TMJ syndrome, vertigo, GERD, anxiety, admitted with suspected intentional OD on benzodiazepines and possible robaxin, celexa with alcohol use. -Suspected intentional Overdose on benzodiazepines/Possible Robaxin/celexa with alcohol use -Suspected Suicidal ideation/attempt -Anxiety -TMJ syndrome -Chronic neck pain -GERD -Vertigo Plan: Currently AAOX3 with non concerning exam. Resume diet. Repeat EKG with normal QTc. d/c IVF. 1:1 constant observation with suicidal precautions. Discussed with Dr. Jim, follow up recs. Hold off on psych medications for now. [facility] registry reviewed, reference # [id number] 90 tablet of diazepam 5 mg and 30 tablets of ambien 5 mg on 06/09/2018. Dispo pending psychiatry input. Plan discussed with patient in detail, all questions answered. Visit type - Emergency Visit Emergency Visit: Yes ED Registration Date: 07/06/18 Care time: The patient presented to the Emergency Department on the above date and was hospitalized for further evaluation of their emergent condition. - New Patient This patient is new to me today: Yes Date on this admission: 07/06/18 - Critical Care Critical Care patient: No - Discharge Referral Referred to [facility] Med P.C.: No
--- NOTE | 2018-07-06 14:38 | CON.PSY ---
Psychiatry Consult Chief Complaint: 47 year old female admitted after ingestinh Valium pills. abiut 5. she claims that she took one Celexa and anbien. She vehemently denies that she was tryingt to kill herself. sheb had been arguing with her hb over house issues. [place] she loves her 27 year old son and her pet dog. Symptoms: reports: Depressed Mood - Previous Psychiatric Treatment Outpatient: Less than 6 mos ago Inpatient: One prior admission - Previous Substance Abuse Treatment Outpatient: None Inpatient: None - Reason for Previous Treatment Reason for Previous Treatment: Major Depression - Current Medications Current Medications: Active Medications Heparin Sodium (Porcine) (Heparin -) 5,000 unit SQ TID [facility] Last Admin: 07/06/18 13:42 Dose: 5,000 unit Sodium Chloride (Normal Saline -) 1,000 mls @ 100 mls/hr IV ASDIR [facility] Last Admin: 07/06/18 07:14 Dose: 100 mls/hr - Allergies Allergies: Allergies Allergy/AdvReac Type Severity Reaction Status Date / Time No Known Allergies Allergy Verified 07/06/18 01:21 - Current Living Status Usual Living Arrangement: With Spouse - Current Mental Status Evaluation Appearance: Well Groomed Attitude: Cooperative - Affect Affect: Constrictive Appropriateness: Appropriate to Content - Mood Mood: Anxious - Speech/Language Expressive: Coherent - Psychomotor Activity Psychomotor Activity: Slowed - Thought Process Thought Process: Intact - Thought Content Hallucinations: Absent Delusions: Absent - Self Perception Self Perception: No Impairment - Cognition Attention: Alert Orientation: Time Memory, Immediate Recall: Intact Memory, Short Term: 3/3 Memory, Remote with Promptin/3 - Concentration Serial Sevens Intact: Yes Simple Calculations Intact: Yes - Abstraction Proverb Interpretation: Intact Judgement: Minimally Impaired - Insight Insight: Intact - Impulse Control Impulse Control: Minimally Impaired - Suicidal Ideation Suicidal Ideation: No - Homicidal Ideation Homicidal Ideation: No Assessment/Plan 1) d/c 1:1 2) Discharge patient when medically stable. 3) will see her [facility] Psych this week.
--- NOTE | 2018-07-06 15:32 | DS ---
Physical Exam: SUBJECTIVE: Patient seen and examined, denies any SI or HI. Denies drug OD as an attempt to kill herself, states had not been able to sleep for few days so took some extra medications. OBJECTIVE: Vital Signs Period Temp Pulse Resp BP Sys/Ellison Pulse Ox Last 24 Hr 97.6 F-98.5 F 60-84 12-20 90-98/56-66 97-98 PHYSICAL EXAM GENERAL: The patient is awake, alert, and fully oriented, in no acute distress. HEAD: Normal with no signs of trauma. EYES: PERRL, extraocular movements intact, sclera anicteric, conjunctiva clear. ENT: Ears normal, nares patent, oropharynx clear without exudates, moist mucous membranes. NECK: Trachea midline, full range of motion, supple. LUNGS: Breath sounds equal, clear to auscultation bilaterally, no wheezes, no crackles, no accessory muscle use. HEART: Regular rate and rhythm, S1, S2 . ABDOMEN: Soft, nontender, nondistended, normoactive bowel sounds, no guarding, no rebound, EXTREMITIES: 2+ pulses, warm, well-perfused, no edema. NEUROLOGICAL: Cranial nerves II through XII grossly intact. Normal speech, ambulating well in the hallway,PERRL, EOMI, facial symmetry, tongue midline, power 5/5, sensation intact and symmetric to light touch, Toes down going, no pronator drift PSYCH: Mildly anxious SKIN: Warm, dry, normal turgor, no rashes or lesions noted. LABS Laboratory Results - last 24 hr 07/06/18 07/06/18 07/06/18 00:21 01:23 01:23 WBC 5.4 RBC 4.30 Hgb 12.7 Hct 37.6 MCV 87.5 MCH 29.5 MCHC 33.8 RDW 12.5 Plt Count 150 MPV 10.3 Absolute Neuts (auto) 2.2 Neutrophils % 40.9 L D Lymphocytes % 47.8 H D Monocytes % 4.9 Eosinophils % 6.1 H D Basophils % 0.3 Nucleated RBC % 0 PT with INR 12.60 INR 1.07 PTT (Actin FS) 33.0 Sodium Potassium Chloride Carbon Dioxide Anion Gap BUN Creatinine Creat Clearance w eGFR Random Glucose Lactic Acid 0.8 Calcium Phosphorus Magnesium Total Bilirubin AST ALT Alkaline Phosphatase Creatine Kinase Troponin I Total Protein Albumin Urine Color Urine Appearance Urine pH Ur Specific [place] Urine Protein Urine Glucose (UA) Urine Ketones Urine Blood Urine Nitrite Urine Bilirubin Urine Urobilinogen Ur Leukocyte Esterase Urine WBC (Auto) Urine RBC (Auto) Ur Epithelial Cells Urine Bacteria Hyaline Casts Urine Mucus Salicylates Opiates Screen Methadone Screen Acetaminophen Barbiturate Screen Phencyclidine Screen Ur Amphetamines Screen MDMA (Ecstasy) Screen Benzodiazepines Screen Cocaine Screen U Marijuana (THC) Screen Alcohol, Quantitative 07/06/18 07/06/18 07/06/18 01:23 01:23 01:23 WBC RBC Hgb Hct MCV MCH MCHC RDW Plt Count MPV Absolute Neuts (auto) Neutrophils % Lymphocytes % Monocytes % Eosinophils % Basophils % Nucleated RBC % PT with INR INR PTT (Actin FS) Sodium Cancelled 143 Potassium Cancelled 3.7 Chloride Cancelled 106 Carbon Dioxide Cancelled 31 Anion Gap Cancelled 7 L BUN Cancelled 14 Creatinine Cancelled 0.8 Creat Clearance w eGFR Cancelled > 60 Random Glucose Cancelled 79 Lactic Acid Calcium Cancelled 8.7 Phosphorus Magnesium Total Bilirubin Cancelled 0.3 AST Cancelled 25 ALT Cancelled 25 Alkaline Phosphatase Cancelled 70 Creatine Kinase 76 Troponin I < 0.02 Total Protein Cancelled 7.0 Albumin Cancelled 3.8 Urine Color Urine Appearance Urine pH Ur Specific [place] Urine Protein Urine Glucose (UA) Urine Ketones Urine Blood Urine Nitrite Urine Bilirubin Urine Urobilinogen Ur Leukocyte Esterase Urine WBC (Auto) Urine RBC (Auto) Ur Epithelial Cells Urine Bacteria Hyaline Casts Urine Mucus Salicylates < 1.7 L Opiates Screen Methadone Screen Acetaminophen < 2.0 L Barbiturate Screen Phencyclidine Screen Ur Amphetamines Screen MDMA (Ecstasy) Screen Benzodiazepines Screen Cocaine Screen U Marijuana (THC) Screen Alcohol, Quantitative 71.7 H 07/06/18 07/06/18 07/06/18 02:35 02:35 09:05 WBC 4.3 RBC 3.99 Hgb 11.6 Hct 34.8 MCV 87.4 MCH 29.1 MCHC 33.2 RDW 12.4 Plt Count 132 L MPV 10.4 Absolute Neuts (auto) Neutrophils % Lymphocytes % Monocytes % Eosinophils % Basophils % Nucleated RBC % PT with INR INR PTT (Actin FS) Sodium Potassium Chloride Carbon Dioxide Anion Gap BUN Creatinine Creat Clearance w eGFR Random Glucose Lactic Acid Calcium Phosphorus Magnesium Total Bilirubin AST ALT Alkaline Phosphatase Creatine Kinase Troponin I Total Protein Albumin Urine Color Ltyellow Urine Appearance Clear Urine pH 5.0 D Ur Specific [place] 1.014 Urine Protein Negative Urine Glucose (UA) Negative Urine Ketones Negative Urine Blood 1+ H Urine Nitrite Negative Urine Bilirubin Negative Urine Urobilinogen Negative Ur Leukocyte Esterase 2+ H Urine WBC (Auto) 18 Urine RBC (Auto) 1 Ur Epithelial Cells Rare Urine Bacteria Rare Hyaline Casts 3 Urine Mucus Rare Salicylates Opiates Screen Negative Methadone Screen Negative Acetaminophen Barbiturate Screen Negative Phencyclidine Screen Negative Ur Amphetamines Screen Negative MDMA (Ecstasy) Screen Negative Benzodiazepines Screen Positive A* Cocaine Screen Negative U Marijuana (THC) Screen Negative Alcohol, Quantitative 07/06/18 09:05 WBC RBC Hgb Hct MCV MCH MCHC RDW Plt Count MPV Absolute Neuts (auto) Neutrophils % Lymphocytes % Monocytes % Eosinophils % Basophils % Nucleated RBC % PT with INR INR PTT (Actin FS) Sodium 142 Potassium 4.0 Chloride 110 H Carbon Dioxide 28 Anion Gap 4 L BUN 14 Creatinine 0.6 Creat Clearance w eGFR > 60 Random Glucose 75 Lactic Acid Calcium 7.8 L Phosphorus 3.8 Magnesium 2.1 Total Bilirubin 0.4 AST 18 ALT 22 Alkaline Phosphatase 59 Creatine Kinase Troponin I Total Protein 6.0 L Albumin 3.3 L Urine Color Urine Appearance Urine pH Ur Specific [place] Urine Protein Urine Glucose (UA) Urine Ketones Urine Blood Urine Nitrite Urine Bilirubin Urine Urobilinogen Ur Leukocyte Esterase Urine WBC (Auto) Urine RBC (Auto) Ur Epithelial Cells Urine Bacteria Hyaline Casts Urine Mucus Salicylates Opiates Screen Methadone Screen Acetaminophen Barbiturate Screen Phencyclidine Screen Ur Amphetamines Screen MDMA (Ecstasy) Screen Benzodiazepines Screen Cocaine Screen U Marijuana (THC) Screen Alcohol, Quantitative HOSPITAL COURSE: Date of Admission:07/06/18 Date of Discharge: 07/06/18 Minutes to complete discharge: 35 Discharge Summary Reason For Visit: DRUG OVERDOSE Hospital Course: Her mental status improved and she awake, OX3 and back to her baseline the next day. She had stable vital signs and was tolerating diet well. Her repeat EKG was non concerning. She was seen by psychiatry and cleared for home discharge with outpatient follow up with psychiatry. Condition: Good - Instructions Diet, Activity, Other Instructions: You were admitted with concerns for drug overdose. You were watched on monitor and your blood work and EKG have been non concerning. You were seen by psychiatry and cleared for home discharge with outpatient follow up with your psychiatrist. Please do not take any medications more than directed. If you feel anxious or unable to sleep, please call your doctor or psychiatrist to address any medication changes but strongly advise to avoid taking any medications without directions by your doctor. Please call your doctor and psychiatrist tomorrow to schedule follow up. Do not drive or operate heavy machinery while on any medications that can cause sleepiness. 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 Please call 911 right away if any thoughts to hurt yours, concerns for depression or severe anxiety or any new concerns noted. Disposition: HOME - Home Medications Comprehensive Discharge Medication List: Ambulatory Orders Diazepam [Valium] 2 mg PO DAILY 07/18/17 Alprazolam [Xanax] 0.25 mg PO DAILY PRN #7 tablet MDD 1 03/25/18 Zolpidem Tartrate [Ambien] 5 mg PO HS 03/25/18 This patient is new to me today: Yes Date on this admission: 07/06/18 Emergency Visit: Yes ED Registration Date: 07/06/18 Care time: The patient presented to the Emergency Department on the above date and was hospitalized for further evaluation of their emergent condition. Critical Care patient: No - Discharge Referral Referred to [facility] Med P.C.: No
[2018-07-06 15:37] VITALS: TEMP 97.5
[2018-07-06] MEDS ORDERED: SODIUM CHLORIDE 1,000 ML IV STA (15:44)
[2018-07-06 17:37] VITALS: BP 94/56; PULSE 63
== END 2018-07-06 18:44 | disposition home or self-care (01) ==
LOC: JER 01:02 → INTOOBSV 04:00 → JERBED 04:00 → J8W 09:46
PROVIDERS: ADMIT Internal Medicine; ATTEND Hospitalist
PROC: 3E033NZ Introduction of Analgesics, Hypnotics, Sedatives into Peripheral Vein, Percutaneous Approach (ICD-10-PCS; principal; 2018-07-06)
PROC: 3E0337Z Introduction of Electrolytic and Water Balance Substance into Peripheral Vein, Percutaneous Approach (ICD-10-PCS; 2018-07-06)
PROC: 3E013GC Introduction of Other Therapeutic Substance into Subcutaneous Tissue, Percutaneous Approach (ICD-10-PCS; 2018-07-06)
DX: T42.4X3A Poisoning by benzodiazepines, assault, initial encounter (principal); T36.7X Poisoning by, adverse effect of and underdosing of antifungal antibiotics, systemically used; Y92.009 Unspecified place in unspecified non-institutional (private) residence as the place of occurrence of the external cause; R53.83 Other fatigue; F32.9 Major depressive disorder, single episode, unspecified; F41.9 Anxiety disorder, unspecified
CPT/HCPCS: 36415; 71045-TC-FY; 74190-TC-FY; 80053; 80307; 81003; 81015; 82550; 83605; 83735; 84100; 84484; 85025; 85027; 85610; 85730; 87086; 93005; 93010; 99285-25; G0378; J1644; J7030

== ENCOUNTER 2020-03-13 00:05 | Emergency (ER) | payer OTHER ==
[2020-03-13] MEDS ORDERED: FAMOTIDINE 20 MG/50 ML IVPB 20 MG/50 ML MG IVPB ONE (00:13)
[2020-03-13] MEDS ORDERED: ONDANSETRON 4 MG/2 ML VIAL IVPUSH ONE (00:13)
--- NOTE | 2020-03-13 00:13 | PDOC ---
History of Present Illness - General Chief Complaint: Alcohol intoxication Stated Complaint: INTOXICATED History Source: Patient, Spouse Exam Limitations: No Limitations - History of Present Illness Initial Comments: 49 yo F history anxiety, insomnia presents with intoxication. 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 As per , she called EMS. She c/o nausea, vomiting (states she is unsure what the emesis contained, the dog ate it before she could see it). C/o dehydration, abdominal cramping. Past History - Medical History Allergies/Adverse Reactions: Allergies Allergy/AdvReac Type Severity Reaction Status Date / Time No Known Allergies Allergy Verified 03/13/20 00:16 Home Medications: Ambulatory Orders Diazepam [Valium] 2 mg PO DAILY 07/18/17 Alprazolam [Xanax] 0.25 mg PO DAILY PRN #7 tablet MDD 1 03/25/18 Zolpidem Tartrate [Ambien] 5 mg PO HS 03/25/18 Anemia: No Asthma: No Cancer: No Cardiac Disorders: No CVA: No COPD: No CHF: No Dementia: No Diabetes: No GI Disorders: Yes (CHRONIC NAUSEA COLONIC POLYPS) Disorders: No HTN: No Hypercholesterolemia: No Liver Disease: No Psychiatric Problems: Yes (depression) Seizures: No Thyroid Disease: No - Surgical History Abdominal Surgery: No Appendectomy: No Cardiac Surgery: No Cholecystectomy: No Lung Surgery: No Neurologic Surgery: No Orthopedic Surgery: No - Psycho-Social/Smoking History Smoking History: Unknown if ever smoked Have you smoked in the past 12 months: No Review of Systems - Review of Systems Able to Perform ROS?: Yes Comments:: GENERAL/CONSTITUTIONAL: No fever or chills. No weakness. HEAD, EYES, EARS, NOSE AND THROAT: No change in vision. No ear pain or discharge. No sore throat. CARDIOVASCULAR: No chest pain or shortness of breath. RESPIRATORY: No cough, wheezing, or hemoptysis. GASTROINTESTINAL: +Nausea, vomiting. No diarrhea or constipation. GENITOURINARY: No dysuria, frequency, or change in urination. MUSCULOSKELETAL: No joint or muscle swelling or pain. No neck or back pain. SKIN: No rash. NEUROLOGIC: No headache, vertigo, loss of consciousness, or change in strength/sensation. ENDOCRINE: No increased thirst. No abnormal weight change. HEMATOLOGIC/LYMPHATIC: No anemia, easy bleeding, or history of blood clots. ALLERGIC/IMMUNOLOGIC: No hives or skin allergy. *Physical Exam - Physical Exam GENERAL: Awake, alert, in no acute distress. Lying on stretcher with sheet over face. +AOB. Appears intoxicated. HEAD: No signs of trauma EYES: PERRLA, EOMI, sclera anicteric, conjunctiva clear ENT: Auricles normal inspection, hearing grossly normal, nares patent, oropharynx clear without exudates. Moist mucosa NECK: Normal ROM, supple, no lymphadenopathy, JVD, or masses LUNGS: Breath sounds equal, clear to auscultation bilaterally. No wheezes, and no crackles HEART: Regular rate and rhythm, normal S1 and S2, no murmurs, rubs or gallops ABDOMEN: Soft, nontender, normoactive bowel sounds. No guarding, no rebound. No masses EXTREMITIES: Normal range of motion, no edema. No clubbing or cyanosis. No cords, erythema, or tenderness NEUROLOGICAL: Cranial nerves II through XII grossly intact. Slightly slurred speech. Motor and sensation intact. Gait not tested due to intoxication. SKIN: Warm, dry, normal turgor, no rashes or lesions noted. Heart Score/ECG Review - ECG Impressions Comment:: EKG read 01:10- NSR 77 bpm, no acute ST/T changes Medical Decision Making - Medical Decision Making 03/13/20 00:44 Pt presents with intoxication, N/V. Will give pepcid, zofran, and IVF. DC home when clinically improved. 03/13/20 03:33 Pt clinically improved. Denies N/V. Feeling better. Stable for DC home. Discharge - Discharge Information Problems reviewed: Yes Clinical Impression/Diagnosis: Alcohol intoxication Qualifiers: Complication of substance-induced condition: uncomplicated Qualified Code(s): F10.920 - Alcohol use, unspecified with intoxication, uncomplicated Condition: Stable Disposition: HOME - Follow up/Referral - Patient Discharge Instructions Patient Printed Discharge Instructions: DI for Alcohol Poisoning - Post Discharge Activity
[2020-03-13] MEDS ORDERED: DEXTROSE 5%-NORMAL SALINE 1,000 ML IV ONE (00:14)
[2020-03-13 00:16] VITALS: BMI 23.6
[2020-03-13] MEDS ORDERED: ONDANSETRON 4 MG/2 ML VIAL ONE (00:22)
[2020-03-13 07:32] VITALS: BP 88/53; PULSE 72; TEMP 98.1
--- NOTE | 2020-03-13 14:32 | EKG ---
Test Reason : Blood Pressure : / mmHG Vent. Rate : 077 BPM Atrial Rate : 077 BPM P-R Int : 162 ms QRS Dur : 090 ms QT Int : 422 ms P-R-T Axes : 076 068 013 degrees QTc Int : 477 ms NORMAL SINUS RHYTHM LEFT ATRIAL ENLARGEMENT NONSPECIFIC ST ABNORMALITY ABNORMAL ECG Confirmed by MD MARYBEL, SHANTAL ([id number]) on 03/13/2020 2:32:44 PM Referred By: MD FLOREZ Confirmed By:SHANTAL NO MD
== END 2020-03-13 03:46 | disposition home or self-care (01) ==
LOC: FER 00:05
PROC: 3E033NZ Introduction of Analgesics, Hypnotics, Sedatives into Peripheral Vein, Percutaneous Approach (ICD-10-PCS; principal; 2020-03-13)
PROC: 3E033GC Introduction of Other Therapeutic Substance into Peripheral Vein, Percutaneous Approach (ICD-10-PCS; 2020-03-13)
PROC: 3E0337Z Introduction of Electrolytic and Water Balance Substance into Peripheral Vein, Percutaneous Approach (ICD-10-PCS; 2020-03-13)
DX: F10.920 Alcohol use, unspecified with intoxication, uncomplicated (principal)
CPT/HCPCS: 93005; 99285-25

== ENCOUNTER 2023-08-03 21:12 | Emergency (ER) | payer OTHER ==
[2023-08-03 21:33] VITALS: BP 112/73; PULSE 74; RESP 18; TEMP 98.1; BMI 25.0
[2023-08-03] MEDS ORDERED: BISACODYL 5 MG TABLET.DR (FP) PO ONE (21:44)
[2023-08-03] MEDS ORDERED: MINERAL OIL ENEMA 133 ML ENEMA RC ONE (21:44)
[2023-08-03] MEDS ORDERED: DOCUSATE SODIUM 100 MG CAPSULE (FP) PO ONE (21:45)
== END 2023-08-03 22:27 | disposition home or self-care (01) ==
LOC: FER 21:12
DX: K59.00 Constipation, unspecified (principal); R14.0 Abdominal distension (gaseous)
CPT/HCPCS: 99283-25